=== PATIENT | male | born 1955 | race Caucasian/White ===

== ENCOUNTER 2023-08-09 05:36 | Emergency (ER) | payer MEDICARE, OTHER ==
[2023-08-09] MEDS ORDERED: LORazepam 2 MG/ML 1ML VIAL IV STA (06:36)
[2023-08-09] MEDS ORDERED: levETIRAcetam INJection 1,000 MG in D5W 100 ML IV ONE (06:40)
[2023-08-09 07:04] LABS: HEMATOCRIT 46.6 % (42.0-52.0); HEMOGLOBIN 16.4 g/dl (13.5-17.5); MEAN CORPUSCULAR HEMOGLOBIN 30.3 pg (27.0-33.0); MEAN CORPUSCULAR HGB CONC 35.2 g/dl (32.0-36.5); MEAN CORPUSCULAR VOLUME 86.1 fl (80.0-96.0); PLATELET COUNT, AUTOMATED 211 10^3/uL (150-450); RED BLOOD COUNT 5.41 10^6/uL (4.30-6.10); WHITE BLOOD COUNT 7.2 10^3/uL (4.0-10.0)
[2023-08-09 07:32] LABS: CALCIUM LEVEL 9.1 MG/DL (8.3-10.6); CREATININE FOR GFR 1.29 MG/DL (0.70-1.30); POTASSIUM SERUM 5.2 MMOL/L (3.5-5.1)
[2023-08-09] MEDS ORDERED: PRAV40TA2 PO (08:08)
[2023-08-09] MEDS ORDERED: PROP20TA72 PO (08:08)
[2023-08-09] MEDS ORDERED: LOSA50TA28 PO (08:08)
[2023-08-09] MEDS ORDERED: LEXA1TAB2 PO (08:08)
[2023-08-09] MEDS ORDERED: OLAN15TA13 PO (08:08)
[2023-08-09] MEDS ORDERED: MEMA10TA19 PO (08:08)
[2023-08-09] MEDS ORDERED: FLOM0.4C39 PO (08:08)
[2023-08-09] MEDS ORDERED: RA M10TA PO (08:12)
[2023-08-09] MEDS ORDERED: PERCTAB2 PO (08:12)
[2023-08-09 09:15] VITALS: BP 128/75; TEMP 97.5; O2SAT 99
[2023-08-09] MEDS ORDERED: KEPP10002 PO (09:23)
== END 2023-08-09 09:55 | disposition home or self-care (01) ==
LOC: M ED 05:36
DX: R56.9 Unspecified convulsions (principal); G30.8 Other Alzheimer's disease; I10 Essential (primary) hypertension
CPT/HCPCS: 70450; 80048; 85027; 96365; 99284; J1953; J2060